=== PATIENT | male | born 1945 | race Caucasian/White ===

== ENCOUNTER → 2018-09-09 09:53 | Outpatient (CLI) | payer MEDICARE, SELFPAY ==
--- NOTE | 2018-09-09 10:01 | XR_ITS ---
XR shoulder LT min 2V HISTORY: ITS.REASON: LT SHOULDER PAIN,LT ARM WEAKNESS,DECREASED RANGE OF MOTION ORDERING PHYSICIAN: Nadia Hamilton APRN PATIENT AGE: 72 years Comparison: None FINDINGS: Mild osteoarthritic changes are present at the acromioclavicular joint and glenohumeral joint. No fracture or dislocation. IMPRESSION: Osteoarthritis
== END ==
PROVIDERS: PCP Nurse Practitioner Family; Visit Provider Nurse Practitioner Family
DX: R29.898 Other symptoms and signs involving the musculoskeletal system; M25.612 Stiffness of left shoulder, not elsewhere classified; M25.512 Pain in left shoulder
CPT/HCPCS: 73030

== ENCOUNTER 2020-06-21 16:14 | Emergency (ER) | payer MEDICARE, SELFPAY ==
[2020-06-21 16:20] VITALS: BP 134/53; PULSE 78; RESP 18; TEMP 36.4; O2SAT 94; O2SAT 96; BMI 30.7
[2020-06-21 16:32] VITALS: BP 139/60; PULSE 67; O2SAT 95
--- NOTE | 2020-06-21 16:58 | CT_ITS ---
PROCEDURE: CT HEAD/BRAIN WO CON CLINICAL INDICATION: weakness COMPARISON: CT HWWO CT HEAD-W/WO CONTRAST from 01/01/2014 TECHNIQUE: Axial images obtained. All CT scans at the facility use one or more dose reduction, viz: automated exposure control, ma/kV adjustment per patient size (including targeted exams where dose is matched to indication, i.e. head), or iterative reconstruction technique. FINDINGS: No midline shift, mass effect, intracranial hemorrhage, hydrocephalus, or extra-axial fluid collection is evident. 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 There are periventricular hypodensities consistent with chronic ischemic white matter changes. The ventricular system is normal.. The calvarium has an unremarkable appearance. No mastoid effusion. No sinus air-fluid level. IMPRESSION: Findings of mild age-appropriate cortical atrophy and mild chronic periventricular ischemic white matter changes, no acute intracranial pathology noted Dictated by: Dr. Oniel Garza MD 06/22/2020 08:24 Dr. Oniel Garza MD in [place] 06/22/2020 08:24
--- NOTE | 2020-06-21 16:58 | XR_ITS ---
PROCEDURE: XR CHEST 2V CLINICAL HISTORY: cough COMPARISON: CT CHW CT CHEST W/ CONTRAST from 01/01/2014 CR CXR CHEST(2 VIEWS-NOT PORTABLE) from 01/01/2014 CR CXR CHEST(2 VIEWS-NOT PORTABLE) from 09/30/2016 FINDINGS: The cardiomediastinal silhouette and pulmonary vascularity are within normal limits. There are sternal wire sutures noted. The lungs are clear without infiltrates, suspicious nodules, or pleural effusions. No acute bony abnormalities. IMPRESSION: No acute findings. Dictated by: Dr. Oniel Garza MD 06/22/2020 08:26 Dr. Oniel Garza MD in [place] 06/22/2020 08:26
--- NOTE | 2020-06-21 16:59 | XR_ITS ---
PROCEDURE: XR KNEE LT 3V CLINICAL INDICATION: pain COMPARISON: No exams were available for comparison FINDINGS: No fracture or dislocation. No lytic or blastic change. There is normal mineralization. There is faint calcification in the medial and lateral meniscus. There is moderate joint space narrowing medially. There is mild spurring of the superior border of the patella. There is no effusion. There is arthrosclerotic calcification in the popliteal artery. Other findings:None. IMPRESSION: Mild degenerate change with mild bilateral chondrocalcinosis Dictated by: Dr. Oniel Garza MD 06/22/2020 08:28 Dr. Oniel Garza MD in [place] 06/22/2020 08:28
[2020-06-21 17:01] VITALS: BP 157/58; PULSE 71; O2SAT 96
--- NOTE | 2020-06-21 17:08 | HMH.EDDIZZ ---
ED Disposition Clinical Impression: Weakness Nausea & vomiting Qualifiers: Vomiting type: unspecified Vomiting Intractability: non-intractable Qualified Code(s): R11.2 - Nausea with vomiting, unspecified Accidental fall Qualifiers: Encounter type: initial encounter Qualified Code(s): W19.XXXA - Unspecified fall, initial encounter Disposition: Home, Self-Care Condition on Discharge: Good Instructions: Dizziness, Nonvertigo Referrals: Kimi Varghese APRN [Primary Care Provider] - - Critical Care Critical Care Time: No Attestation: On 06/21/20, the high probability of a clinically significant, sudden or life threatening deterioration of the following system(s) required my full and direct attention, intervention and personal management. The time I documented below is in addition to time spent performing reported procedures but includes the following listed in this critical care notation. Medical Decision Making - Medical Records Medical records reviewed: Yes: I reviewed the patient's medical records. - Nathan Inquiry Pt receiving controlled substance: No Vital Signs: 06/21/20 16:20 06/21/20 16:32 06/21/20 17:01 Temperature 97.6 F Temperature Source Oral Pulse Rate 78 67 71 Respiratory Rate 18 Blood Pressure 134/53 L 139/60 157/58 H Blood Pressure Mean 81 02 Sat by Pulse Oximetry 94 L 95 96 Oxygen Delivery Method Room Air 06/21/20 17:31 06/21/20 17:35 Temperature Temperature Source Pulse Rate 75 70 Respiratory Rate Blood Pressure 144/70 H 144/70 H Blood Pressure Mean 02 Sat by Pulse Oximetry 92 L 97 Oxygen Delivery Method - Lab Data Lab Results 06/21/20 17:07: WBC 7.7, RBC 4.26 L, Hgb 13.7 L, Hct 40.6 L, MCV 95.2 H, MCH 32.1 H, MCHC 33.7, RDW 13.4, Plt Count 207, MPV 8.2, Neut % (Auto) 74.4, Lymph % (Auto) 14.9, [place] % (Auto) 6.1, Eos % (Auto) 3.5, Baso % (Auto) 1.0, Neut # (Auto) 5.8, Lymph # (Auto) 1.2, [place] # (Auto) 0.5, Eos # (Auto) 0.3, Baso # (Auto) 0.1 06/21/20 17:07: Sodium 136, Potassium 4.1, Chloride 100, Carbon Dioxide 27, Anion Gap 13.1, BUN 17, Creatinine 0.80, Estimated Creat Clear 88, Estimated GFR 95, Est GFR ( Amer) 115, Glucose 122 H, Calcium 9.9, Total Bilirubin 0.6, AST 32, ALT 28, Alkaline Phosphatase 34 L, Troponin I < 0.01, NT-Pro-B Natriuret Pep 202 H, Total Protein 8.1, Albumin 5.0, Globulin 3.1, Albumin/Globulin Ratio 1.6, Lipase 53 Result diagrams: 06/21/20 17:07 06/21/20 17:07 Orders (Tests/Meds): ORDERS Category Date Time Status CT head/brain wo con Stat Cat Scan 06/21/20 16:58 Taken Knee XR left 3 views [XR knee LT 3V] Stat Exams 06/21/20 16:59 Taken XR chest 2V Stat Exams 06/21/20 16:58 Taken Brain Natriuretic Peptide Stat Lab 06/21/20 17:07 Results Comprehensive Metabolic Panel Stat Lab 06/21/20 17:07 Results Lipase Stat Lab 06/21/20 17:07 Results TSH [Thyroid Stimulating Hormone] Stat Lab 06/21/20 17:07 Results Trop I [Troponin I] Stat Lab 06/21/20 17:07 Results Troponin I Q3H Lab 06/21/20 20:00 Ordered Troponin I Q3H Lab 06/21/20 23:00 Ordered - Radiology Data #1 Image(s): Chest, Knee Image Reviewed: Yes I reviewed the patient's radiology results, Yes I reviewed the patient's radiology image Preliminary Findings: Normal/NAD, No Fracture Seen, No Infiltrates Seen - CT Data CT Scan: Head Time Received: 18:[address] Reviewed: Yes: I have reviewed the patient's CT results, I have viewed the radiologist's interpretation Preliminary Findings: Normal/NAD, No Fracture Seen - ECG Data Tracing #1 Normal ventricular rate of 70 bpm, WA interval 172 ms, prolonged QTC, sinus rhythm with nonspecific ST changes. ECG initial impression date: 06/21/20 ECG initial impression time: 17:46 - Reevaluation(s) Time: 18:08 Reevaluation #1: On reevaluation, the patient is feeling much better. Repeat neurologic exam is normal. NIH is 0. Patient is pain-free at this time. I did explain to the patient
--- NOTE | 2020-06-21 17:12 | PC.NURSE ---
pt to CT
[2020-06-21 17:14] LABS: Basophils # 0.1 K/mm3 (0-0.2); Eosinophils # 0.3 K/mm3 (0.0-0.4); Eosinophils % 3.5 % (0.1-12.0); Hematocrit 40.6 % (42.0-52.0); Hemoglobin 13.7 g/dL (14.1-18.0); Lymphocytes # 1.2 K/mm3 (0.7-4.5); Lymphocytes % 14.9 % (10-50); Mean Corpuscular HGB Conc 33.7 g/dL (31.8-35.4); Mean Corpuscular Hemoglobin 32.1 pg (27.0-31.2); Mean Corpuscular Volume 95.2 fl (80-94); Mean Platelet Volume 8.2 fl (7.4-10.4); Monocytes # 0.5 K/mm3 (0.1-1.0); Monocytes % 6.1 % (1.7-9.3); Neutrophils # 5.8 K/mm3 (1.8-7.8); Neutrophils % 74.4 % (37.0-80.0); Platelet Count 207 K/mm3 (142-424); Red Blood Count 4.26 M/mm3 (4.60-6.20); Red Cell Distribution Width 13.4 % (11.5-17.5); White Blood Count 7.7 K/mm3 (4.8-10.8)
[2020-06-21 17:24] LABS: Chloride 100 mmol/L (98-107)
[2020-06-21 17:25] LABS: Potassium 4.1 mmoL/L (3.5-5.1); Sodium 136 mmol/L (136-145)
[2020-06-21 17:27] LABS: Alanine Aminotransferase 28 U/L (12-78); Albumin/Globulin Ratio 1.6 (1.1-1.8); Alkaline Phosphatase 34 U/L (38-126); Anion Gap 13.1 mEq/L (5-15); Aspartate Amino Transferase 32 U/L (17-59); Bilirubin,Total 0.6 mg/dl (0.2-1.3); Blood Urea Nitrogen 17 mg/dl (9-20); Calcium 9.9 mg/dl (8.4-10.2); Carbon Dioxide 27 mmol/L (22.0-30.0); Creatinine Clearance Estimated 88 mL/min (50-200); Estimated Glomerular Filt Rate 95 ml/min (>60); GFR (African American) 115 ML/MIN (>60); Globulin 3.1 g/dL (1.3-3.2); Glucose 122 mg/dl (74-100); Lipase 53 U/L (23-300); Total Protein,Serum 8.1 g/dl (6.3-8.2)
[2020-06-21 17:31] VITALS: BP 144/70; PULSE 75; O2SAT 92
[2020-06-21 17:35] VITALS: BP 144/70; PULSE 70; O2SAT 97
[2020-06-21 17:44] LABS: NT Pro Brain Natriuretic Pep. 202 pg/mL (0-125)
--- NOTE | 2020-06-21 17:44 | ECG_ITS ---
APPROVED REPORT Exam: Resting ECG HR:70 bpm ECG Measurements Heart Rate 70 AXES WV 172 P 27 QRSd 104 QRS -26 QT 434 T 91 QTc 468 Conclusion Normal sinus rhythm ST & T wave abnormality, consider anterolateral ischemia Prolonged QT Abnormal ECG Electronically signed by : Alireza Green, 06/22/2020 07:40:40
[2020-06-21 17:52] LABS: Troponin I < 0.01 ng/ml (0.00-0.034)
[2020-06-21 18:05] LABS: Thyroid Stimulating Hormone 0.54 uIU/mL (0.465-4.68)
[2020-06-21 18:21] VITALS: BP 153/81; PULSE 89; RESP 16; TEMP 36.7
== END 2020-06-21 18:23 | disposition home or self-care (01) ==
PROVIDERS: Emergency Provider Emergency Medicine; PCP Nurse Practitioner
DX: M25.562 Pain in left knee (principal); W01.0XXA Fall on same level from slipping, tripping and stumbling without subsequent striking against object, initial encounter; Y92.481 Parking lot as the place of occurrence of the external cause; R20.2 Paresthesia of skin; R06.00 Dyspnea, unspecified; R42 Dizziness and giddiness; Z95.1 Presence of aortocoronary bypass graft; Z79.899 Other long term (current) drug therapy
CPT/HCPCS: 70450; 71046; 73562; 80053; 83690; 83880; 84443; 84484; 85025; 93005; 99282

== ENCOUNTER 2021-03-26 11:50 | Observation (INO) | payer MEDICARE, SELFPAY ==
[2021-03-26] VITALS (14 sets, daily range): BP systolic 107–168; BP diastolic 45–104; PULSE 60–80; RESP 14–18; TEMP 36.6–36.8; O2SAT 95–100; BMI 35.7; BMI 37.9; BMI 32.8
--- NOTE | 2021-03-26 11:54 | CT_ITS ---
FINAL REPORT TECHNIQUE: Axial images were performed through the brain.This study was performed with techniques to keep radiation doses as low as reasonably achievable, (ALARA). Individualized dose reduction techniques using automated exposure control or adjustment of mA and/or kV according to the patient''s size were employed. CLINICAL HISTORY: altered speech, stroke protocol FINDINGS: There is mild to moderate atrophy. The ventricles are normal in size for the degree of atrophy. There is extensive abnormal decreased signal throughout the deep white matter bilaterally. There is no extra-axial fluid or midline shift. There is no evidence of acute hemorrhage or mass. There is mucoperiosteal thickening in the left maxillary sinus and ethmoid air cells consistent with chronic sinusitis. IMPRESSION: Atrophy and chronic microvascular ischemia. No acute intracranial process. Consider diffusion-weighted MRI. Reviewed, Interpreted and Dictated by Rakan Jackson MD Transcribed by Shabbir Coronel Authenticated by Rakan Jackson MD on 03/26/2021 12:13:07 PM [facility]
--- NOTE | 2021-03-26 12:02 | XR_ITS ---
FINAL REPORT CLINICAL HISTORY: cough FINDINGS: A single view of the chest was obtained. There is mild cardiomegaly. The patient is status post median sternotomy. There are chronic changes at the lung bases. There is no acute pulmonary abnormality. There is no pleural effusion. There is no pneumothorax. There is no acute osseous abnormality. IMPRESSION: No acute cardiopulmonary process. Reviewed, Interpreted and Dictated by Rakan Jackson MD Transcribed by Brooke Pettit Authenticated by Rakan Jackson MD on 03/26/2021 01:08:13 PM [facility]
--- NOTE | 2021-03-26 12:24 | ECG_ITS ---
APPROVED REPORT Exam: Resting ECG HR:64 bpm ECG Measurements Heart Rate 64 AXES WI 172 P 51 QRSd 98 QRS -39 QT 454 T 98 QTc 468 Conclusion Normal sinus rhythm Left axis deviation Septal infarct, age undetermined Abnormal ECG Electronically signed by : Alireza Green MD 03/28/2021 14:31:47
[2021-03-26 12:29] LABS: Basophils # 0.1 K/mm3 (0-0.2); Basophils % 2.1 % (0.1-2.0); Eosinophils # 0.4 K/mm3 (0.0-0.4); Hematocrit 42.7 % (42.0-52.0); Hemoglobin 13.7 g/dL (14.1-18.0); Lymphocytes # 0.9 K/mm3 (0.7-4.5); Lymphocytes % 19.4 % (10-50); Mean Corpuscular HGB Conc 32.1 g/dL (31.8-35.4); Mean Corpuscular Hemoglobin 32.6 pg (27.0-31.2); Mean Corpuscular Volume 101.6 fl (80-94); Monocytes # 0.7 K/mm3 (0.1-1.0); Monocytes % 14.8 % (1.7-9.3); Neutrophils # 2.6 K/mm3 (1.8-7.8); Neutrophils % 55.7 % (37.0-80.0); Platelet Count 228 K/mm3 (142-424); Red Blood Count 4.21 M/mm3 (4.60-6.20); Red Cell Distribution Width 13.2 % (11.5-17.5); White Blood Count 4.6 K/mm3 (4.8-10.8)
[2021-03-26 12:39] LABS: Chloride 102 mmol/L (98-107); Potassium 3.7 mmoL/L (3.5-5.1); Sodium 138 mmol/L (136-145)
[2021-03-26 12:42] LABS: Alanine Aminotransferase 43 U/L (12-78); Albumin Level 4.4 g/dl (3.5-5.0); Albumin/Globulin Ratio 1.4 (1.1-1.8); Alkaline Phosphatase 32 U/L (38-126); Anion Gap 9.7 mEq/L (5-15); Aspartate Amino Transferase 42 U/L (17-59); Bilirubin,Total 0.4 mg/dl (0.2-1.3); Blood Urea Nitrogen 22 mg/dl (9-20); Carbon Dioxide 30 mmol/L (22.0-30.0); Creatinine Clearance Estimated 98 mL/min (50-200); Estimated Glomerular Filt Rate 82 ml/min (>60); GFR (African American) 100 ML/MIN (>60); Globulin 3.2 g/dL (1.3-3.2); Total Protein,Serum 7.6 g/dl (6.3-8.2)
[2021-03-26 12:43] LABS: Calcium 9.2 mg/dl (8.4-10.2); Glucose 83 mg/dl (74-100); INR 0.96 (0.9-1.1); Prothrombin Time 10.9 seconds (10.1-12.5)
[2021-03-26 12:46] LABS: Coronavirus 19, PCR Not Detected (NotDetected); Influenza A, PCR Not Detected (NotDetected); Influenza B, PCR Not Detected (NotDetected)
[2021-03-26 12:52] LABS: NT Pro Brain Natriuretic Pep. 179 pg/mL (0-125)
[2021-03-26 12:55] LABS: Troponin I 0.13 ng/ml (0.00-0.034)
--- NOTE | 2021-03-26 13:06 | CT_ITS ---
FINAL REPORT TECHNIQUE: Thin section axial CT with IV contrast supplemented with multiplanar reconstruction under CT angiogram protocol. This study was performed with techniques to keep radiation doses as low as reasonably achievable (ALARA). Individualized dose reduction techniques using automated exposure control or adjustment of mA and/or kV according to the patient''s size were employed. NASCET criteria was utilized during interpretation. CLINICAL HISTORY: weakness, syncope FINDINGS: There is a 1.4 cm prevascular lymph node of uncertain significance. There is biapical pleural and parenchymal scarring, greatest on the right. Aortic arch: There is dense calcification of the aortic arch. There is dense calcification of the proximal left subclavian artery. On the axial images narrowing measures about 60% in the proximal left subclavian. Right carotid: There is dense vascular calcification at the bifurcation and proximal ICA. Stenosis measures 70-80% at the origin of the right ICA. Left carotid: There is dense vascular calcification at the bifurcation and proximal ICA. Stenosis measures 90% at the origin of the left ICA. Vertebral: Left vertebral artery is dominant. No significant stenosis is present. IMPRESSION: Extensive vascular calcification of the carotid bifurcations, left greater than right, consistent with high grade bilateral carotid stenosis. 70-80 % on the right and 90% on the left. Reviewed, Interpreted and Dictated by Rakan Jackson MD Transcribed by Brooke Pettit Authenticated by Rakan Jackson MD on 03/26/2021 03:13:30 PM [facility]
--- NOTE | 2021-03-26 13:06 | CT_ITS ---
FINAL REPORT TECHNIQUE: Thin section axial CT with IV contrast supplemented with multiplanar reconstruction under CT angiogram protocol. 3-D reconstructions were performed. This study was performed with techniques to keep radiation doses as low as reasonably achievable (ALARA). Individualized dose reduction techniques using automated exposure control or adjustment of mA and/or kV according to the patient''s size were employed. CLINICAL HISTORY: weakness, syncope FINDINGS: The distal vertebral, basilar and distal internal carotid arteries have an unremarkable appearance. No aneurysm is seen. Major intracranial vessels are patent without significant stenosis. No definite acute abnormality. Consider diffusion-weighted MRI. Reviewed, Interpreted and Dictated by Rakan Jackson MD Transcribed by Brooke Pettit Authenticated by Rakan Jackson MD on 03/26/2021 03:13:31 PM [facility]
[2021-03-26 13:14] LABS: Thyroid Stimulating Hormone 0.45 uIU/mL (0.465-4.68)
--- NOTE | 2021-03-26 13:16 | HMH.EDGENADL ---
ED Disposition Clinical Impression: Atypical syncope, Elevated troponin I level Carotid stenosis Qualifiers: Laterality: bilateral Qualified Code(s): I65.23 - Occlusion and stenosis of bilateral carotid arteries Disposition: Admitted as Observation Condition on Discharge: Fair Referrals: Alireza Rockwell MD [Primary Care Provider] - - Critical Care Critical Care Time: No Attestation: On 03/26/21, the high probability of a clinically significant, sudden or life threatening deterioration of the following system(s) required my full and direct attention, intervention and personal management. The time I documented below is in addition to time spent performing reported procedures but includes the following listed in this critical care notation. Medical Decision Making - Medical Records Medical records reviewed: Yes: I reviewed the patient's medical records. - Nathan Inquiry Pt receiving controlled substance: No Vital Signs: 03/26/21 11:51 03/26/21 12:08 03/26/21 12:27 Temperature 98.3 F Temperature Source Oral Pulse Rate 76 80 Pulse Rate [Right] 63 Respiratory Rate 16 16 16 Blood Pressure 142/60 H 127/55 L Blood Pressure [Right Arm] 152/73 H Blood Pressure Mean 98 79 Blood Pressure Mean [Right Arm] 99 Blood Pressure Source [Right Arm] Automatic Cuff Blood Pressure Position [Right Arm] Sitting 02 Sat by Pulse Oximetry 95 96 97 Oxygen Delivery Method Room Air 03/26/21 12:31 03/26/21 13:00 03/26/21 14:00 Temperature Temperature Source Pulse Rate 62 67 62 Pulse Rate [Right] Respiratory Rate 16 16 16 Blood Pressure 111/51 L 134/58 L 142/104 H Blood Pressure [Right Arm] Blood Pressure Mean 71 83 113 Blood Pressure Mean [Right Arm] Blood Pressure Source [Right Arm] Blood Pressure Position [Right Arm] 02 Sat by Pulse Oximetry 97 100 100 Oxygen Delivery Method 03/26/21 15:31 03/26/21 16:01 Temperature Temperature Source Pulse Rate 60 62 Pulse Rate [Right] Respiratory Rate 16 16 Blood Pressure 119/45 L 132/54 L Blood Pressure [Right Arm] Blood Pressure Mean 70 80 Blood Pressure Mean [Right Arm] Blood Pressure Source [Right Arm] Blood Pressure Position [Right Arm] 02 Sat by Pulse Oximetry 98 100 Oxygen Delivery Method - Lab Data Lab Results 03/26/21 11:59: WBC 4.6 L, RBC 4.21 L, Hgb 13.7 L, Hct 42.7, MCV 101.6 H, MCH 32.6 H, MCHC 32.1, RDW 13.2, Plt Count 228, MPV 9.0, Neut % (Auto) 55.7, Lymph % (Auto) 19.4, [place] % (Auto) 14.8 H, Eos % (Auto) 8.0, Baso % (Auto) 2.1 H, Neut # (Auto) 2.6, Lymph # (Auto) 0.9, [place] # (Auto) 0.7, Eos # (Auto) 0.4, Baso # (Auto) 0.1 03/26/21 11:59: Sodium 138, Potassium 3.7, Chloride 102, Carbon Dioxide 30, Anion Gap 9.7, BUN 22 H, Creatinine 0.90, Estimated Creat Clear 98, Estimated GFR 82, Est GFR ( Amer) 100, Glucose 83, Calcium 9.2, Total Bilirubin 0.4, AST 42, ALT 43, Alkaline Phosphatase 32 L, Troponin I 0.13 H, Total Protein 7.6, Albumin 4.4, Globulin 3.2, Albumin/Globulin Ratio 1.4, TSH 0.45 L 03/26/21 11:59: PT 10.9, INR 0.96, APTT 28.0 03/26/21 11:59: NT-Pro-B Natriuret Pep 179 H 03/26/21 12:25: SARS-CoV-2 (PCR) Not detected, Influenza A Untype (PCR) Not detected, Influenza Type B (PCR) Not detected 03/26/21 15:15: Troponin I 0.11 H Result diagrams: 03/26/21 11:59 03/26/21 11:59 Orders (Tests/Meds): ED MEDICATIONS Discontinued Medications Generic Name Dose Route Start Last Admin Trade Name Freq PRN Reason Stop Dose Admin Aspirin 325 mg 03/26/21 15:44 03/26/21 15:55 Aspirin 325mg Tablet PO 03/26/21 15:45 Not Given ONCE ONE Aspirin 243 mg 03/26/21 15:48 03/26/21 15:49 Aspirin 81mg Chewable Tablet PO 03/26/21 15:49 243 mg ONCE ONE Administration Iopamidol 100 ml 03/26/21 13:37 03/26/21 13:37 Iopamidol-370 (76%);100ml Bottle IV 03/26/21 13:38 100 ml ONCE ONE Administration Sodium Chloride 10 ml 03/26/21 13:37 03/26/21 13:37 Sodium Chloride 0
--- NOTE | 2021-03-26 14:40 | PC.NURSE ---
Called dietary for a tray for room 6
--- NOTE | 2021-03-26 15:15 | PC.NURSE ---
lab at bedside collecting 2nd troponin. Pt finished eating lunch. No needs at this time
[2021-03-26 15:52] LABS: Troponin I 0.11 ng/ml (0.00-0.034)
--- NOTE | 2021-03-26 15:59 | PC.NURSE ---
has been paged
--- NOTE | 2021-03-26 16:06 | CA_ITS ---
APPROVED REPORT EXAM: Comprehensive 2D, Doppler, and color-flow Echocardiogram Counter Helper: Alicia Malagon, RCS, RVS Ht: 5 ft 6 in Wt: 235lbs BSA: 2.14 BP: 134/58 mmHg Indications: CAD s/p CABGx3-12 years ago, Slurred speech, Hx- critical ELIEZER, HTN, ex-smoker, Obesity,Near syncope, Palpitations 2D Dimensions Aortic Root 3.50 cm LA Volume 49.60 mL Left Atrium 3.66 cm LA Volume Index 23.20 mL/m2 (M/F) 16-34 LVOT 2.05 cm (M/F) 1.5-2.5 M-Mode Dimensions RVDd 2.51 cm (0.9-2.6) LA Diam 3.24 cm (1.9-4.0) LVDd 5.44 cm (3.5-5.7) Ao Diam 3.79 cm (2.0-3.7) LVDs 4.04 cm (3.5-5.7) IVSd 1.19 cm (0.6-1.1) PWd 1.06 cm (0.6-1.1) EF (Teich) 50.10% EPSs 0.64 cm FS 25.70% EDV (Teich) 143.70 mL TAPSE 1.55 (<1.7) ESV (Teich) 71.70 mL LV Diastology E Decel Time 260.00 (160-240 msec) E/A Ratio 0.85 MED E' 8.30 (< 7 cm/sec) MED A' 9.80 cm/s E'/MED E' Ratio 9.67 (>14) LAT E' 7.50 (<10 cm/sec) LAT A' 11.60 cm/s E/LAT E' Ratio 10.71 (>14) Aortic Valve LVOT Max 91.00 (70-110 cm/s) LVOT VTI 20.71 cm AoV Peak Michael. 148.00 (50-130 cm/s) AI PHT 391.00 ms AO Peak GR. 8.80 mmHg AO Mean GR. 4.40 (<5 mmHg) AO VTI 30.69 (18-25 cm) REGINO (VTI) 2.23 (2.5-4.5 cm2) Mitral Valve MV A Velocity 95.00 (40-130 cm/s) E/A Ratio 0.85 MV Decel. Time 260.00 (160-240 ms) Pulmonary Valve PV Peak Velocity 91.00 (50-150 cm/s) Tricuspid Valve TR P. Velocity 162.00 cm/s RAP Estimate 10.00 mmHg RVSP 20.50 mmHg Left Ventricle Left atrium is mildly enlarged, left ventricle is normal size, mild concentric left ventricular hypertrophy, visually estimated ejection fraction 55% with no regional wall motion abnormality, grade 1 diastolic dysfunction seen without tissue Doppler evidence of raise left atrial pressure. Right Ventricle Right atrium and right ventricle are normal size and contractility. Aortic Valve Aortic valve is minimally thickened and calcified without aortic stenosis, there is trace aortic insufficiency. Mitral Valve Mitral valve grossly normal, there is trace mitral regurgitation. Tricuspid Valve Tricuspid grossly normal, there is trace tricuspid regurgitation. Tricuspid regurgitation jet velocity is inadequate for calculation of the right ventricular systolic pressure. Pulmonic Valve Pulmonic valve is poorly visualized. Great Vessels Aortic root is normal size. Inferior vena cava is normal size with normal inspiratory collapse. Pericardium No significant pericardial effusion noted. Conclusion 1. Mildly enlarged left atrium, normal left ventricular size, mild concentric left ventricular hypertrophy, visually estimated ejection fraction 55% with no regional wall motion abnormality, grade 1 diastolic dysfunction seen without tissue Doppler evidence of raise left atrial pressure. 2. Trace aortic, mitral and tricuspid regurgitation. 3. No significant pericardial effusion. 4. Inferior vena cava normal size with normal inspiratory collapse. Electronically signed by : Lawrence Lobato MD 03/26/2021 18:55:48
--- NOTE | 2021-03-26 16:12 | PC.NURSE ---
[facility] has been called for a bed
--- NOTE | 2021-03-26 17:23 | PC.NURSE ---
report called to douglas varghese
[2021-03-27] VITALS: BP 120/45; PULSE 60; RESP 16; TEMP 36.4; O2SAT 95
[2021-03-27 01:17] LABS: Appearance,Urine CLEAR (Clear); Bilirubin,Urine Negative (Negative); Blood, Urine Negative (Negative); Color,Urine YELLOW (Yellow); Glucose,Urine (UA) Negative (Negative); Ketones,Urine Negative (Negative); Leukocyte Esterase,Urine Negative (Negative); Microscopic, Urine URINE MICROSCOPIC (MICROSCOPIC); Nitrate,Urine Negative (Negative); Protein,Urine Negative (Negative); Specific Gravity, Urine 1.025 (1.005-1.030)
[2021-03-27 02:12] LABS: WBC,Urine Occasional #/hpf (0-3)
--- NOTE | 2021-03-27 03:06 | PC.NURSE ---
PT ARRIVED TO FLOOR VIA STRTECHER FROM ED W/STAFF @ [phone]
[2021-03-27 04:00] VITALS: BP 136/63; PULSE 59; PULSE 60; RESP 15; TEMP 36.3; O2SAT 96; BMI 33.1
[2021-03-27 06:49] LABS: Basophils # 0.1 K/mm3 (0-0.2); Basophils % 1.5 % (0.1-2.0); Eosinophils # 0.5 K/mm3 (0.0-0.4); Eosinophils % 10.1 % (0.1-12.0); Hematocrit 38.2 % (42.0-52.0); Lymphocytes % 23.2 % (10-50); Mean Corpuscular HGB Conc 31.9 g/dL (31.8-35.4); Mean Corpuscular Hemoglobin 32.6 pg (27.0-31.2); Mean Corpuscular Volume 102.2 fl (80-94); Mean Platelet Volume 8.9 fl (7.4-10.4); Monocytes # 0.5 K/mm3 (0.1-1.0); Monocytes % 11.6 % (1.7-9.3); Neutrophils # 2.4 K/mm3 (1.8-7.8); Neutrophils % 53.7 % (37.0-80.0); Platelet Count 193 K/mm3 (142-424); Red Blood Count 3.74 M/mm3 (4.60-6.20); Red Cell Distribution Width 13.3 % (11.5-17.5); White Blood Count 4.4 K/mm3 (4.8-10.8)
[2021-03-27 07:01] LABS: Blood Urea Nitrogen 21 mg/dl (9-20); Calcium 8.8 mg/dl (8.4-10.2); Carbon Dioxide 30 mmol/L (22.0-30.0); Chloride 101 mmol/L (98-107); Creatinine Clearance Estimated 91 mL/min (50-200); Estimated Glomerular Filt Rate 94 ml/min (>60); GFR (African American) 114 ML/MIN (>60); Glucose 97 mg/dl (74-100); Sodium 135 mmol/L (136-145)
--- NOTE | 2021-03-27 07:16 | HMH.PHAVTE ---
[facility] Pharmacy VTE Monitoring - Patient Demographics Admission date: 03/27/21 Report Date: 03/27/21 Time: 07:16 Allergies/Adverse Reactions: Patient Allergies No Known Allergies Allergy (Verified 06/21/20 16:45) Height: 1.73 m Weight: 99.246 kg Patient Problems: Current Active Problems Atypical syncope (Acute) Carotid stenosis (Acute) Elevated troponin I level (Acute) - VTE Risk Labs: VTE Related Lab Results Hgb 13.7 g/dL (14.1-18.0) L 03/26/21 11:59 Hct 38.2 % (42.0-52.0) L 03/27/21 06:03 Plt Count 193 K/mm3 (142-424) 03/27/21 06:03 PT 10.9 seconds (10.1-12.5) 03/26/21 11:59 INR 0.96 (0.9-1.1) 03/26/21 11:59 APTT 28.0 seconds (22.8-30.6) 03/26/21 11:59 BUN 21 mg/dl (9-20) H 03/27/21 06:03 Creatinine 0.80 mg/dl (0.66-1.25) 03/27/21 06:03 Estimated Creat Clear 91 mL/min (50-200) 03/27/21 06:03 Was VTE Risk Assessment Performed: Yes VTE Score: 4 VTE Risk Level: Low Risk Clinical Trial Participant: No - Prophylaxis VTE Prophylaxis Ordered?: Yes Types of VTE Prophylaxis: TEDS Knee High, Pharmacological Pharmacologic Type: Enoxaparin
[2021-03-27 07:25] LABS: Hemoglobin 12.3 g/dL (14.1-18.0)
--- NOTE | 2021-03-27 07:59 | PC.NURSE ---
Patient rested well during night. VSS on ra. Denies pain. up ad jaskaran in room. NPO since midnight. Showered and clipper prepped today for cardiology consult.
[2021-03-27 08:00] VITALS: BP 116/63; PULSE 61; RESP 17; TEMP 36.4; O2SAT 96
--- NOTE | 2021-03-27 08:15 | HMH.HP ---
*Admission Date: 03/26/21 *Chief complaint: Off balance *History of present illness: 75-year-old male presented to the emergency department yesterday after an episode where he was driving and felt off balance as well as developed some tingling in the left arm that he estimates lasted 1 minute. He did not have chest pain, shortness of breath, diaphoresis, headache, visual disturbance, left arm or leg weakness. Patient did not pull off the side of the road and continue to drive. He returned to his home and decided to come to a local doctor's office where he has been seen many years ago. Patient's family decided to later take him to the emergency department. In the ER he underwent evaluation which did include CT of the head and CT angiogram which identified severe bilateral carotid stenosis. Patient is aware he has severe bilateral carotid stenosis and has seen at least 2 vascular surgeons regarding interventions. His cardiovascular disease specialist is Dr. Britany Macedo. Patient also has a history of CABG x3 approximately 9 years ago. He has undergone stress testing since his CABG but does not believe he has had any left heart catheterization as he has not had episodes of chest pain. Patient was admitted for observation due to elevations in his troponin. Presenting symptoms had resolved before admission [facility] History I have reviewed the patient's past medical history: Yes Medical History: Reports:: Cancer (small cell carcinoma), Carotid Stenosis, Coronary Artery Disease, Hyperlipidemia, Hypertension Denies:: Diabetes Mellitus Type 1, Diabetes Mellitus Type 2, MRSA *Have you ever received a pneumonia vaccine?: No *Have you received a flu vaccine this season?: No Other Surgeries: Yes: CABG, Cardiac Catheterization Amputation: No - *Social History Smoking Status: Former smoker Alcohol Intake: current Alcohol Intake Frequency:: holidays/special occasions only *Occupational Status:: retired *Travel in the last 8 weeks: None Family Hx:: Cancer, Hyperlipidemia, Hypertension Review of Systems - Review of Systems Review of systems:: pertinent systems reviewed and negative unless documented below - *Neurologic Reports fainting, Reports weakness Meds Home Medications Medication Instructions Recorded Confirmed Type Clopidogrel Bisulfate [Clopidogrel 75 mg PO DAILY 06/21/20 03/26/21 History 75mg Tab] Pantoprazole Sodium 40 mg PO DAILY 06/21/20 03/26/21 History Pravastatin Sodium 80 mg PO HS 06/21/20 03/27/21 History Allergies Allergy/AdvReac Type Severity Reaction Status Date / Time No Known Allergies Allergy Verified 06/21/20 16:45 Exam Vital signs and Labs for Last 24 Hours: Temp Pulse Resp BP Pulse Ox 97.4 F L 59 L 15 136/63 96 03/27/21 04:00 03/27/21 04:00 03/27/21 04:00 03/27/21 04:00 03/27/21 04:00 Laboratory Results - last 24 hr 03/26/21 11:59: WBC 4.6 L, RBC 4.21 L, Hgb 13.7 L, Hct 42.7, MCV 101.6 H, MCH 32.6 H, MCHC 32.1, RDW 13.2, Plt Count 228, MPV 9.0, Neut % (Auto) 55.7, Lymph % (Auto) 19.4, [place] % (Auto) 14.8 H, Eos % (Auto) 8.0, Baso % (Auto) 2.1 H, Neut # (Auto) 2.6, Lymph # (Auto) 0.9, [place] # (Auto) 0.7, Eos # (Auto) 0.4, Baso # (Auto) 0.1 03/26/21 11:59: Sodium 138, Potassium 3.7, Chloride 102, Carbon Dioxide 30, Anion Gap 9.7, BUN 22 H, Creatinine 0.90, Estimated Creat Clear 98, Estimated GFR 82, Est GFR ( Amer) 100, Glucose 83, Calcium 9.2, Total Bilirubin 0.4, AST 42, ALT 43, Alkaline Phosphatase 32 L, Troponin I 0.13 H, Total Protein 7.6, Albumin 4.4, Globulin 3.2, Albumin/Globulin Ratio 1.4, TSH 0.45 L 03/26/21 11:59: PT 10.9, INR 0.96, APTT 28.0 03/26/21 11:59: NT-Pro-B Natriuret Pep 179 H 03/26/21 12:01: Urine Color Yellow, Urine Appearance Clear, Urine pH 6.0, Ur Specific [place] 1.025, Urine Protein Negative, Urine Glucose (UA) Negative, Urine Ketones Negative, Urine Blood Negative, Urine Nitrate Negative, Urine Bilirubin Negative, Urine Urobilinogen 1.0, Ur Leukocyte Esterase
--- NOTE | 2021-03-27 08:52 | HMH.CNCARD ---
History of Present Illness Consult date: 03/27/21 Requesting physician: Alireza Rockwell Chief complaint: Near syncope, elevated troponins History of present illness: 75-year-old male presented to the emergency room yesterday afternoon with lightheadedness and disorientation. Patient states while he was driving he felt as if he was becoming disoriented and was unable to focus on the road. Patient stopped and called his daughter in which she brought him to the emergency room for evaluation of stroke. Patient denies chest pain, tightness or pressure. Patient denies shortness of breath. No swelling noted in lower extremities. Patient denies palpitations. Patient states once he arrived to the ED, the lightheadedness went away. Upon lab work-up, troponins were noted as mildly elevated. Troponins were trending down. This may have been caused by demand ischemic due to carotid artery stenosis. Neck CT revealed carotid artery stenosis with right ICA noted 70 to 80%. Left ICA noted at 90%. Patient states he is aware this. Patient states he was diagnosed with ELIEZER 3 to 4 years ago. Patient states that he has neglected to follow-up with vascular surgery to have endocarotid ectomy. Patient states he does follow-up with Dr. Macedo in [place]. Patient states he was to have cardiac work-up performed in which was ordered by Dr. Macedo but has neglected to have those performed. Patient states he has been noncompliant with following up as he should. Patient is currently on Plavix and aspirin. Patient is on appropriate and standard cardiac medications. Patient has history of coronary bypass over 12 years ago. Patient does have history of hypertension and hyperlipidemia. Patient is a non-smoker. personnel monitor reveals sinus rhythm with no ectopy. Blood pressure stable. Echocardiogram reveals EF 55% with no regional wall motion abnormality, grade 1 diastolic dysfunction. Trace of aortic,mitral and tricuspid regurgitation. Patient states he is feeling much better. Patient is to follow-up with Dr. Macedo due to her being patient's house cleaner supervisor. Patient is to follow-up with vascular surgery for possible Endo carotidectomy. Chest CT:FINDINGS: The distal vertebral, basilar and distal internal carotid arteries have an unremarkable appearance. No aneurysm is seen. Major intracranial vessels are patent without significant stenosis. No definite acute abnormality. Consider diffusion-weighted MRI. Neck CTA:IMPRESSION: Extensive vascular calcification of the carotid bifurcations, left greater than right, consistent with high grade bilateral carotid stenosis. 70-80 % on the right and 90% on the left. Echo:Conclusion 1. Mildly enlarged left atrium, normal left ventricular size, mild concentric left ventricular hypertrophy, visually estimated ejection fraction 55% with no regional wall motion abnormality, grade 1 diastolic dysfunction seen without tissue Doppler evidence of raise left atrial pressure. 2. Trace aortic, mitral and tricuspid regurgitation. 3. No significant pericardial effusion. 4. Inferior vena cava normal size with normal inspiratory collapse. [facility] History I have reviewed the patient's past medical history: Yes Medical History: Reports:: Cancer (small cell carcinoma), Carotid Stenosis, Coronary Artery Disease, Hyperlipidemia, Hypertension Denies:: Diabetes Mellitus Type 1, Diabetes Mellitus Type 2, MRSA *Have you ever received a pneumonia vaccine?: No *Have you received a flu vaccine this season?: No Other Surgeries: Yes: CABG, Cardiac Catheterization Amputation: No - *Social History Smoking Status: Former smoker Alcohol Intake: current Alcohol Intake Frequency:: holidays/special occasions only *Occupational Status:: retired *Travel in the last 8 weeks: None Family Hx:: Cancer, Hyperlipidemia, Hypertension Meds Home Medications Medication Instructions Recorded Confirmed Type Clopidogrel Bisulfate [Clopidogrel 75 m
--- NOTE | 2021-03-27 09:12 | HMH.DCSUM ---
General - General Admission date:: 03/26/21 Discharge date: 03/27/21 HPI HPI: 75-year-old male presented to the emergency department yesterday after an episode where he was driving and felt off balance as well as developed some tingling in the left arm that he estimates lasted 1 minute. He did not have chest pain, shortness of breath, diaphoresis, headache, visual disturbance, left arm or leg weakness. Patient did not pull off the side of the road and continue to drive. He returned to his home and decided to come to a local doctor's office where he has been seen many years ago. Patient's family decided to later take him to the emergency department. In the ER he underwent evaluation which did include CT of the head and CT angiogram which identified severe bilateral carotid stenosis. Patient is aware he has severe bilateral carotid stenosis and has seen at least 2 vascular surgeons regarding interventions. His verifying specialist is Dr. Britany Macedo. Patient also has a history of CABG x3 approximately 9 years ago. He has undergone stress testing since his CABG but does not believe he has had any left heart catheterization as he has not had episodes of chest pain. Patient was admitted for observation due to elevations in his troponin. Presenting symptoms had resolved before admission Hospital Course Hospital Course: Patient was admitted. He had no arrhythmias detected. He has known vascular disease and admitted noncompliance with referrals and follow up. Cardiology was consulted and recommended f/u with his specialists. Patient was discharged to home. Objective Vital signs: Temp Pulse Resp BP Pulse Ox 97.4 F L 59 L 15 136/63 96 03/27/21 04:00 03/27/21 04:00 03/27/21 04:00 03/27/21 04:00 03/27/21 04:00 no acute distress - *Routine HEENT Exam Head: Present: normocephalic Eye: Present: EOMI, PERRL ENT: Present: mucous membranes moist - *Routine Neck Exam Present: supple - *Routine Respiratory Exam Present: CTA bilaterally - *Routine Cardiovascular Exam Present: RRR - *Routine Abdominal Exam Present: soft, normoactive bowel sounds. Absent: tenderness - *Routine Extremities Exam Absent: cyanosis, clubbing, edema - *Routine Skin Exam Present: warm. Absent: rash - Detailed Eye Exam Eyelids: Bilateral normal inspection Results Labs on day of discharge: Labs from last 24 hours 03/27/21 03/27/21 03/26/21 06:03 06:03 18:06 WBC 4.4 L RBC 3.74 L Hgb 12.3 L D Hct 38.2 L MCV 102.2 H MCH 32.6 H MCHC 31.9 RDW 13.3 Plt Count 193 MPV 8.9 Neut % (Auto) 53.7 Lymph % (Auto) 23.2 [place] % (Auto) 11.6 H Eos % (Auto) 10.1 Baso % (Auto) 1.5 Neut # (Auto) 2.4 Lymph # (Auto) 1.0 [place] # (Auto) 0.5 Eos # (Auto) 0.5 H Baso # (Auto) 0.1 PT INR APTT Sodium 135 L Potassium 4.0 Chloride 101 Carbon Dioxide 30 Anion Gap 8.0 BUN 21 H Creatinine 0.80 Estimated Creat Clear 91 Estimated GFR 94 Est GFR ( Amer) 114 Glucose 97 Calcium 8.8 Total Bilirubin AST ALT Alkaline Phosphatase Troponin I 0.10 H NT-Pro-B Natriuret Pep Total Protein Albumin Globulin Albumin/Globulin Ratio TSH Urine Color Urine Appearance Urine pH Ur Specific [place] Urine Protein Urine Glucose (UA) Urine Ketones Urine Blood Urine Nitrate Urine Bilirubin Urine Urobilinogen Ur Leukocyte Esterase Urine RBC Urine WBC Ur Squamous Epith Cells Urine Bacteria SARS-CoV-2 (PCR) Influenza A Untype (PCR) Influenza Type B (PCR) 03/26/21 03/26/21 03/26/21 15:15 12:25 12:01 WBC RBC Hgb Hct MCV MCH MCHC RDW Plt Count MPV Neut % (Auto) Lymph % (Auto) [place] % (Auto) Eos % (Auto) Baso % (Auto) Neut # (Auto) Lymph # (Auto) [place] # (Auto) Eos #
--- NOTE | 2021-03-27 10:32 | SW/DCPLANNER ---
PATIENT IS DISCHARGING HOME TODAY AND AT THIS TIME HE HAS NO ORDERS FOR ANY HOME CARE.
== END 2021-03-27 11:19 | disposition home or self-care (01) ==
LOC: ER 16:16 → 2ND 17:44
PROVIDERS: Admitting Provider Internal Medicine Adolescent Medicine; Emergency Provider Emergency Medicine; PCP Family Medicine; Visit Provider Family Medicine
DX: R55 Syncope and collapse (principal); Z79.01 Long term (current) use of anticoagulants; I65.23 Occlusion and stenosis of bilateral carotid arteries; I25.10 Atherosclerotic heart disease of native coronary artery without angina pectoris; R77.8 Other specified abnormalities of plasma proteins; R42 Dizziness and giddiness; Z79.899 Other long term (current) drug therapy; Z91.19 Patient's noncompliance with other medical treatment and regimen; R06.9 Unspecified abnormalities of breathing; Z20.822 Contact with and (suspected) exposure to COVID-19
CPT/HCPCS: G0378; 36415; 70450; 70496; 70498; 71045; 80048; 80053; 81001; 83880; 84443; 84484; 85025; 85610; 85730; 93005; 93306; 99284; C9803; Q9967; U0003; U0005